=== PATIENT | female | born 1970 | race Caucasian/White ===

== ENCOUNTER → 2016-12-05 | Outpatient (CLI) | payer MEDICARE, OTHER | LOC: HEART 5 11-10 11:00 | DX: R07.9 Chest pain, unspecified (principal) | CPT/HCPCS: 93017; 93306; J2785 ==

== ENCOUNTER → 2016-12-12 | Outpatient (CLI) | payer MEDICARE, OTHER | LOC: HEART 5 11:05 | DX: J44.9 Chronic obstructive pulmonary disease, unspecified (principal) | CPT/HCPCS: 94060; 94729 ==

== ENCOUNTER → 2016-12-26 | Outpatient (CLI) | payer MEDICARE, OTHER | LOC: HEART 5 10:49 | DX: J44.9 Chronic obstructive pulmonary disease, unspecified (principal); R94.2 Abnormal results of pulmonary function studies; Z87.891 Personal history of nicotine dependence | CPT/HCPCS: 94060 ==

== ENCOUNTER 2020-12-30 20:50 | Emergency (ER) | payer MEDICARE, OTHER ==
[~2020-12-30 20:50] MED LIST: AZITHROMYCIN500 MG PO; BREO ELLIPTA 21 EACH INH; CARDIZEM CD180 MG PO; CLARITIN10 MG PO; DALIRESP 500500 MCG PO; DIFLUCAN100 MG PO; DOXYCYCLINE HY100 MG PO; ECOTRIN81 MG PO; INCRUSE ELLI62.5 MCG INH; IPRAT-ALBUT 0.5-3 ML INH; LEVAQUIN750 MG PO; LIPITOR TAB 2020 MG PO; LORTAB 5-325 M1 EACH PO; MACROBID 100 M100 MG PO; OMNICEF 300 MG300 MG PO; PREDNISONE10 MG PO; PROAIR HFA8.5 GM INH; PROBIOTIC1 EAC3 PO; PROTONIX40 MG PO; SINGULAIR10 MG PO; TOPROL XL25 MG PO; VALIUM 5 MG TAB5 MG PO; VITAMIN B-121000 MCG PO
[2020-12-30 22:38] LABS: HEMOGLOBIN 14.9 gm/dl (12.3-15.3); RED BLOOD COUNT 5.35 M/UL (4.00-5.10)
[2020-12-30 23:00] LABS: BUN/CREATININE RATIO 10 (0-10)
== END 2020-12-31 01:15 | disposition home or self-care (01) ==
LOC: ER1 20:50
PROVIDERS: Internal Medicine
DX: R07.2 Precordial pain (principal); F43.9 Reaction to severe stress, unspecified; F41.9 Anxiety disorder, unspecified; J44.9 Chronic obstructive pulmonary disease, unspecified; I10 Essential (primary) hypertension; Z90.89 Acquired absence of other organs; Z87.891 Personal history of nicotine dependence
CPT/HCPCS: 71046; 80053; 82550; 82553; 84484; 85025; 85610; 85730; 93005; 96374; 99285; J2405

== ENCOUNTER 2022-04-15 18:20 | Inpatient (IN) | payer MEDICARE, OTHER ==
[~2022-04-15] VITALS: Ht 160 cm; Wt 57.2 kg
[~2022-04-15 18:20] MED LIST changes: +CETIRIZINE HCL10 MG PO; -CLARITIN10 MG PO; -TOPROL XL25 MG PO; +TOPROL XL50 MG PO
[2022-04-15 19:07] LABS: HEMOGLOBIN 13.3 gm/dl (12.3-15.3); RED BLOOD COUNT 4.97 M/UL (4.00-5.10); WHITE BLOOD COUNT 10.1 K/UL (4.5-11.0)
[2022-04-15 19:31] LABS: BUN/CREATININE RATIO 10 (0-10)
[2022-04-16 04:27] LABS: HEMOGLOBIN 11.7 gm/dl (12.3-15.3); RED BLOOD COUNT 4.55 M/UL (4.00-5.10)
[2022-04-16 04:34] LABS: WHITE BLOOD COUNT 7.3 K/UL (4.5-11.0)
[2022-04-16 04:49] LABS: BUN/CREATININE RATIO 12 (0-10)
[2022-04-16] MEDS ORDERED: TRELEGY ELLIPT1 EACH INH (10:33)
[2022-04-16] MEDS ORDERED: VITAMIN C500 M4 PO (10:34)
[2022-04-16] MEDS ORDERED: ATROVENT HFA12.9 GM INH (10:34)
[2022-04-16] MEDS ORDERED: VITAMIN D325 MC6 PO (10:34)
[2022-04-16] MEDS ORDERED: IPRAT-ALBUT 0.5-3 ML INH (10:34)
--- NOTE | 2022-04-16 14:13 | NUR ---
PT IV HAD BEEPED A FEW TIMES DUE TO BEING IN HER AC SHE STATED BOTH ANTIBIOTICS THAT HAD BEEN INFUSING BURNED. SHE WENT BACK AND FORTH SEVERAL MINUTES TRYING TO DECIDE WHETHER SHE WANTED IT REPLACED. SHE FINALLY DECIDED TO HAVE IT RESTARTED. I ATTEMPTED IV #1 SHE IMMEDIATELY SAID IT HURT AND WANTED IT REMOVED IT HAD GOOD BLOOD RETURN BUT I REMOVED IT. THE SECOND IV ATTEMPT I WAS ABLE TO GET BLOOD RETURN AND SHE SAID "NO NO NO I NEED IT OUT" I REMOVED IT. THE FINAL TRY I WAS ABLE TO GET A 20 GAUGE IN THE RIGHT WRIST GOOD BLOOD RETURN SHE SAID IT STILL BURNED BUT WANTED TO KEEP IT IN AND TRY. ABOUT ONE HOUR LATER HER DAUGHTER WHO IS AN RN CALLED AND SAID THE TIP OF THE IV WAS STICKING OUT (THEY HAD BEEN FACE TIMING) AND IT NEEDED TO BE REDONE OZ MY PRECEPTEE ASSESSED THE IV AND SAID IT WAS FINE. THE IV IS OFF AT THIS TIME AND OZ WILL TRY WHEN SHE IS ABLE AT THE PATIENTS REQUEST. AND SAID IT LOOKED LIKE A GOOD IV. NAV THE TELEGRAPH SERVICE CLERK HAS BEEN NOTIFIED AND SHE WILL TRY THE IV .
--- NOTE | 2022-04-16 16:22 | NUR ---
ROUNDED ON PATIENT, PATIENT UPSET DR VEE DISCONTINUED HER ANTIBIOTICS. THE PATIENT STATED, SHE STARTED TO FEEL BETTER WITH THE ANTIBIOTICS. PATIENT ALSO STATED SHE TOLD DR VEE THAT SHE WOULD AGREE TO SEE DR NEIVES AND NOT DR JAUREGUI, SHE DOES NOT LIKE HIS BEDSIDE MANNER. SHE STATED THAT WHEN SHE TOLD DR VEE THAT, HE CAME BACK AND DISCONTINUED HER ANTIBIOTIC AND TOLD HER THAT HE DOES NOT SEE ANYTHING ON HER XRAY THAT SHOWED A NEED FOR ANTIBIOTICS. SHE STATED HE ALSO SAID THAT SHE DOES NOT LIKE [facility] BECAUSE HE IS HONEST. PATIENT UPSET AND WOULD LIKE A TRANSFER TO [facility] IN [place]. DR VEE NOTIFIED OF CONVERSATION. DR VEE STATED HE WOULD LIKE HER TO SEE THE PULOMARY DR AND ASK HIM ABOUT NEEDING ANTIBIOTICS. PATIENT MADE AWARE.
[2022-04-17 10:47] LABS: ADENOVIRUS F 40/41 Not Detected (Negative); ASTROVIRUS Not Detected (Negative); CAMPYLOBACTER Not Detected (Negative); CRYPTOSPORIDIUM Not Detected (Negative); E.COLI 0157 Not Detected (Negative); ENTAMOEBA HISTOLYTICA Not Detected (Negative); ENTEROAGGREGATIVE E.COLI (EAEC Not Detected (Negative); ENTEROPATHOGENIC E.COLI (EPEC) Not Detected (Negative); ENTEROTOXIGENIC E.COLI (ETEC) Not Detected (Negative); GIARDIA LAMBLIA Not Detected (Negative); NOROVIRUS GI/GII Not Detected (Negative); PLESIOMONAS SHIGELLOIDES Not Detected (Negative); ROTOVIRUS A Not Detected (Negative); SALMONELLA Not Detected (Negative); SAPOVIRUS Not Detected (Negative); SHIG/ENTEROINVAS.ECOLI (EIEC) Not Detected (Negative); SHIGA-LIK TOX.PRO.E.COLI (STEC Not Detected (Negative); VIBRIO Not Detected (Negative); VIBRIO CHOLERAE Not Detected (Negative); YERSINIA ENTEROCOLITICA Not Detected (Negative)
[2022-04-17 12:53] LABS: CLOSTRIDIUM DIFFICILE TOX A/B Not Detected (Negative)
--- NOTE | 2022-04-18 15:20 | NUR ---
PT O2 SAT DROPPED TO LESS THAN 86% ON ROOM AIR.
[2022-04-18] MEDS ORDERED: AZITHROMYCIN250 MG PO (17:22)
[2022-04-18] MEDS ORDERED: DIGOX125 MCG PO (17:22)
[2022-04-18] MEDS ORDERED: SPIRIVA RESPIMAT4 GM INH (17:22)
[2022-04-18] MEDS ORDERED: PREDNISONE 20 M20 MG PO (17:22)
[2022-04-18] MEDS ORDERED: COMBIVENT RESPIM4 GM INH (17:22)
--- NOTE | 2022-04-18 18:56 | NUR ---
D/C PENDING NEEDS HOME O2. NOTIFIED.
== END 2022-04-19 12:02 | disposition home or self-care (01) | DRG 189 ==
LOC: ER1 18:20 → CDU 20:18 → M/S 04-16 07:48
PROVIDERS: Emergency Medicine; Internal Medicine Infectious Disease; ADMIT Internal Medicine
PROC: 5A09357 Assistance with Respiratory Ventilation, Less than 24 Consecutive Hours, Continuous Positive Airway Pressure (ICD-10-PCS; principal; 2022-04-16)
PROC: 5A09357 Assistance with Respiratory Ventilation, Less than 24 Consecutive Hours, Continuous Positive Airway Pressure (ICD-10-PCS; 2022-04-17)
PROC: 5A09357 Assistance with Respiratory Ventilation, Less than 24 Consecutive Hours, Continuous Positive Airway Pressure (ICD-10-PCS; 2022-04-19)
DX: J96.21 Acute and chronic respiratory failure with hypoxia (principal); J44.1 Chronic obstructive pulmonary disease with (acute) exacerbation; Z20.822 Contact with and (suspected) exposure to COVID-19; J44.9 Chronic obstructive pulmonary disease, unspecified; E78.5 Hyperlipidemia, unspecified; J96.22 Acute and chronic respiratory failure with hypercapnia; R00.0 Tachycardia, unspecified; F41.9 Anxiety disorder, unspecified; Z87.891 Personal history of nicotine dependence; Z99.81 Dependence on supplemental oxygen; Z98.890 Other specified postprocedural states; Z82.49 Family history of ischemic heart disease and other diseases of the circulatory system; Z98.51 Tubal ligation status
CPT/HCPCS: 0240U; 36600; 71045; 71250; 80053; 81001; 82550; 82553; 82803; 83735; 83880; 84484; 85025; 85379; 87040; 87086; 87507; 93005; 94640; 94660; 94664; 94760; 96374; 96375; 99285; J0456; J0696; J1160; J1650; J2920; J2930; J7030